=== PATIENT | female | born 1985 | race Caucasian/White ===

== ENCOUNTER 2022-05-20 22:07 | Emergency (ER) | payer OTHER ==
--- NOTE | 2022-05-20 22:59 | ERPHSYRPT ---
- History of Present Illness Time Seen by Provider: 05/20/22 22:50 Historian: patient Physician History: Patient is a 36-year-old female presents to emergency department for evaluation of abdominal pain nausea and vomiting. Symptoms started today. Patient states she has been feeling unwell today. Patient unable to tolerate p.o. [facility] She states she had her gallbladder and her appendix removed. Patient symptoms described as abdominal cramps. Cramping is intense. Mild epigastric pain. Symptoms are constant. Symptoms are moderate in intensity. No specific worsening improving factors. Patient denies history of the same. She voices no other complaints or concerns at this time. Portions of this note were created with voice recognition technology. There may be grammatical, spelling, punctuation or sound alike errors Timing/Duration: today Activities at Onset: none Quality: aching Abdominal Pain Onset Location: epigastric Pain Radiation: no radiation Severity of Pain-Max: moderate Severity of Pain-Current: mild Modifying Factors: Improves With: nothing Associated Symptoms: denies symptoms Previous symptoms: no prior history Allergies/Adverse Reactions: bee venom protein (honey bee) Allergy (Severe, Verified 05/20/22 23:11) enoxaparin [From Lovenox] Allergy (Intermediate, Verified 05/20/22 23:11) heparin Allergy (Intermediate, Verified 05/20/22 23:11) onion Allergy (Intermediate, Verified 05/20/22 23:11) - Review of Systems Constitutional: No Symptoms, No Fever, No Chills Eyes: No Symptoms Ears, Nose, & Throat: No Symptoms Respiratory: No Symptoms, No Cough, No Dyspnea Cardiac: No Symptoms, No Chest Pain, No Edema, No Syncope Abdominal/Gastrointestinal: No Symptoms, No Abdominal Pain, No Nausea, No Vomiting, No Diarrhea Genitourinary Symptoms: No Symptoms, No Dysuria Musculoskeletal: No Symptoms, No Back Pain, No Neck Pain Skin: No Symptoms, No Rash Neurological: No Symptoms, No Dizziness, No Focal Weakness, No Sensory Changes Psychological: No Symptoms Endocrine: No Symptoms Hematologic/Lymphatic: No Symptoms Immunological/Allergic: No Symptoms All Other Systems: Reviewed and Negative - Female History Hx Now: No - Nursing Vital Signs Nursing Vital Signs: Initial Vital Signs Temperature 97.2 F 05/20/22 22:48 Pulse Rate 95 H 05/20/22 22:48 Respiratory Rate 18 05/20/22 22:48 Blood Pressure 143/94 05/20/22 22:48 O2 Sat by Pulse Oximetry 99 05/20/22 22:48 Pain Scale Pain Intensity 7 - Physical Exam General Appearance: no apparent distress, alert Eye Exam: PERRL/EOMI, eyes nml inspection Ears, Nose, Throat Exam: normal ENT inspection, TMs normal, pharynx normal, ruben st mucous membranes Neck Exam: normal inspection, non-tender, supple, full range of motion Respiratory Exam: normal breath sounds, lungs clear, airway intact, No chest tenderness, No respiratory distress Cardiovascular Exam: regular rate/rhythm, normal heart sounds, normal peripheral pulses Gastrointestinal/Abdomen Exam: soft, normal bowel sounds, other (Epigastric pain. Epigastric tenderness to palpation. Overlying soft tissue intact. Patient has a history of cholecystectomy as well as appendectomy), No tenderness, No mass Back Exam: normal inspection, normal range of motion, No CVA tenderness, No vertebral tenderness Extremity Exam: normal inspection, normal range of motion, pelvis stable Neurologic Exam: alert, oriented x 3, cooperative, normal mood/affect, nml cerebellar function, sensation nml, No motor deficits Skin Exam: normal color, warm, dry SpO2 Interpretation: normal SpO2: 98 O2 Delivery: Room Air - Course Nursing assessment & vital signs reviewed: Yes - CT Exams Abdomen/Pelvis CT Interpretation: Tele-radiologist Report (Calcified granuloma within the left lower lobe nonobstructive nephrolithiasis colonic diverticulosis moderate amount of stool throughout the colon suggesting constipation.) Ordered Tests: Active Orders 24 hr Category Date Time Status IV Insertion STAT Care 05/20/22 22:55 Active ABDOMEN AND PELVIS W/0 CONTRAS [CT] Stat Exams 05/20/22 22:56 Taken CBC W DIFF Stat Lab 05/20/22 23:00 Completed CMP Stat Lab 05/20/22 23:00 Completed HCG,QUALITATIVE URINE Stat Lab 05/20/22 22:56 Ordered LIPASE Stat Lab 05/20/22 23:00 Completed TROPONIN Q4H Lab 05/20/22 23:00 Completed TROPONIN Q4H Lab 05/21/22 03:00 Ordered TROPONIN Q4H Lab 05/21/22 07:00 Ordered Transfer Order Routine Transfer 05/21/22 Ordered Medication Summary Discontinued Medications Generic Name Dose Route Start Last Admin Trade Name Freq PRN Reason Stop Dose Admin Diphenhydramine HCl 25 mg 11/01/22 23:41 05/20/22 23:43 Diphenhydramine Hcl 50 Mg/Ml Vial IV 05/20/22 23:42 25 mg STAT ONE Administration Diphenhydramine HCl Confirm 05/20/22 23:42 Diphenhydramine Hcl 50 Mg/Ml Vial Administered 05/20/22 23:43 Dose 50 mg .ROUTE .STK-MED ONE Sodium Chloride 1,000 mls @ 999 mls/hr 05/20/22 22:55 05/20/22 23:07 Sodium Chloride 0.9% 1000 Ml IV 05/20/22 23:55 999 mls/hr .Q1H1M STA Administration Sodium Chloride Confirm 05/20/22 23:05 Sodium Chloride 0.9% 1000 Ml Administered 05/20/22 23:06 Dose 1,000 mls @ ud .ROUTE .STK-MED ONE Morphine Sulfate 4 mg 05/20/22 22:55 05/20/22 23:08 Morphine Sulfate 4 Mg/Ml Injection IV 05/20/22 22:56 4 mg STAT ONE Administration Morphine Sulfate Confirm 05/20/22 23:05 Morphine Sulfate 4 Mg/Ml Injection Administered 05/20/22 23:06 Dose 4 mg .ROUTE .STK-MED ONE Ondansetron HCl 4 mg 05/20/22 22:55 05/20/22 23:08 Ondansetron Hcl 4 Mg/2 Ml Vial IV 05/20/22 22:56 4 mg STAT ONE Administration Ondansetron HCl Confirm 05/20/22 23:05 Ondansetron Hcl 4 Mg/2 Ml Vial Administered 05/20/22 23:06 Dose 4 mg .ROUTE .STK-MED ONE Ondansetron HCl 4 mg 05/21/22 01:29 Ondansetron Hcl 4 Mg/2 Ml Vial IV 05/21/22 01:30 STAT ONE Lab/Rad Data: Laboratory Result Diagrams 05/20/22 23:00 05/20/22 23:00 Laboratory Results 05/20/22 05/20/22 05/20/22 Range/Units 23:00 23:00 23:00 WBC 5.5 (4.0-10.5) x10^3/uL RBC 4.38 (4.1-5.4) x10^6/uL Hgb 13.4 (12.0-16.0) g/dL Hct 39.6 (35-47) % MCV 90.4 (78-100) fL MCH 30.6 (26-32) pg MCHC 33.8 (32-36) g/dL RDW 12.0 (11.5-14.0) % Plt Count 253 (150-450) x10^3/uL MPV 9.7 (7.5-11.0) fL Gran % 54.8 (36.0-66.0) % Immature Gran % (Auto) 0.4 (0.00-0.4) % Nucleat RBC Rel Count 0.0 (0.00-0.1) % Eos # (Auto) 0.22 (0-0.5) x10^3/uL Immature Gran # (Auto) 0.02 (0.00-0.03) x10^3u/L Absolute Lymphs (auto) 1.79 (1.0-4.6) x10^3/uL Absolute Monos (auto) 0.43 (0.0-1.3) x10^3/uL Absolute Nucleated RBC 0.00 (0.00-0.01) x10^3u/L Lymphocytes % 32.3 (24.0-44.0) % Monocytes % 7.8 (0.0-12.0) % Eosinophils % 4.0 (0.00-5.0) % Basophils % 0.7 (0.0-0.4) % Absolute Granulocytes 3.04 (1.4-6.9) x10^3/uL Basophils # 0.04 (0-0.4) x10^3/uL Sodium 139 (137-145) mmol/L Potassium 3.6 (3.5-5.1) mmol/L Chloride 104 (98-107) mmol/L Carbon Dioxide 25 (22-30) mmol/L Anion Gap 13.6 (5-15) MEQ/L BUN 13 (7-17) mg/dL Creatinine 0.75 (0.52-1.04) mg/dL Estimated GFR > 60.0 ML/MIN Glucose 105 (74-106) mg/dL Calcium 8.9 (8.4-10.2) mg/dL Total Bilirubin 2.40 H (0.2-1.3) mg/dL AST 518 H (14-36) U/L ALT 265 H (0-35) U/L Alkaline Phosphatase 137 H (38-126) U/L Troponin I < 0.012 (0.000-0.034) ng/mL Serum Total Protein 7.9 (6.3-8.2) g/dL Albumin 4.6 (3.5-5.0) g/dL Lipase 56 (23-300) U/L - Progress Progress: improved Progress Note: Case discussed with Dr. Cheema. Patient does not have a doctor locally. She is from [place]. Patient will see Dr. Cheema in the morning. We will schedule patient for an outpatient ultrasound of the right upper quadrant. Patient has a history of cholecystectomy. We will assess for possible CBD stone. Patient requesting discharge. We will arrange for patient's follow-up prior to discharge. She voices no other complaints or concerns at this time. Portions of this note were created with voice recognition technology. There may be grammatical, spelling, punctuation or sound alike errors 05/21/22 01:32 Patient currently scheduled for an outpatient right upper quadrant ultrasound to be performed this morning at 10 AM. Patient discharged home. She received a prescription for Zofran. 05/21/22 01:49 Counseled pt/family regarding: lab results, diagnosis, need for follow-up, rad results - Departure Departure Disposition: Home Clinical Impression: Abdominal pain, Total bilirubin, elevated, Elevated alkaline phosphatase level, Transaminitis, Lung granuloma, Diverticulosis, Constipation Condition: Stable Critical Care Time: No Referrals: KEMAL NORRIS MD [Primary Care Provider] - Follow up/PCP as directed Additional Instructions: Discharge/Care Plan JENNIFER PRATHER was seen on 05/21/22 in the Emergency Room. The patient was counseled regarding Diagnosis,Lab results, Imaging studies, need for follow up and when to return to the Emergency Room. Prescriptions given: Discharge Note I have spoken with the patient and/or caregivers. I have explained the patient's condition, diagnosis and treatment plan based on the information available to me at this time. I have answered the patient's and/or caregiver's questions and addressed any concerns. The patient and/or caregivers have as good understanding of the patient's diagnosis, condition and treatment plan as can be expected at this point. The vital signs have been stable. The patient's condition is stable and appropriate for discharge from the emergency department. The patient will pursue further outpatient evaluation with the primary care physician or other designated or consulting physician as outlined in the discharge instructions. The patient and/or caregivers are agreeable to this plan of care and follow-up instructions have been explained in detail. The patient and/or caregivers have received these instruction. The patient/and or caregivers are aware that any significant change in condition or worsening of symptoms should prompt an immediate return to this or the closest emergency department or call 911. Prescriptions: Ondansetron ODT 4 MG [Zofran Odt 4 mg] 4 mg PO Q6H PRN PRN #10 tablet PRN Reason: Vomiting
[2022-05-20 23:00] VITALS: O2SAT 98
[2022-05-20] MEDS ORDERED: Sodium Chloride 0.9% 1000 ML 1,000 ML ONE (23:05)
[2022-05-20] MEDS ORDERED: Zofran 4 MG/2 ML VIAL ONE (23:05)
[2022-05-20] MEDS ORDERED: MORPHINE SULFATE 4 MG INJ ONE (23:05)
[2022-05-20] MEDS: Sodium Chloride 0.9% 1000 ML 1,000 ML IV STA (23:07)
[2022-05-20] MEDS: MORPHINE SULFATE 4 MG INJ IV ONE (23:08)
[2022-05-20] MEDS: Zofran 4 MG/2 ML VIAL IV ONE (23:08)
[2022-05-20 23:10] LABS: Absolute Neutrophil Ct (ANC) 3.04 x10^3/uL (1.4-6.9); Basophil (Absolute #) 0.04 x10^3/uL (0-0.4); Eosinophil (Absolute #) 0.22 x10^3/uL (0-0.5); Hematocrit 39.6 % (35-47); Hemoglobin 13.4 g/dL (12.0-16.0); Lymphocyte (Absolute #) 1.79 x10^3/uL (1.0-4.6); Lymphocytes % 32.3 % (24.0-44.0); Mean Cell Volume 90.4 fL (78-100); Mean Corpuscular Hemoglobin 30.6 pg (26-32); Mean Corpuscular Hgb Concent. 33.8 g/dL (32-36); Mean Platelet Volume 9.7 fL (7.5-11.0); Monocyte (Absolute #) 0.43 x10^3/uL (0.0-1.3); Monocytes % 7.8 % (0.0-12.0); Neutrophil % 54.8 % (36.0-66.0); Platelet Count 253 x10^3/uL (150-450); Red Blood Count 4.38 x10^6/uL (4.1-5.4); White Blood Count 5.5 x10^3/uL (4.0-10.5)
[2022-05-20 23:24] LABS: ALBUMIN 4.6 g/dL (3.5-5.0); ALKALINE PHOSPHATASE 137 U/L (38-126); ANION GAP 13.6 MEQ/L (5-15); BLOOD UREA NITROGEN 13 mg/dL (7-17); CHLORIDE 104 mmol/L (98-107); Calcium 8.9 mg/dL (8.4-10.2); Carbon Dioxide 25 mmol/L (22-30); Creatinine 1 0.75 mg/dL (0.52-1.04); EST GLOMERULAR FILTRATION RATE > 60.0 ML/MIN; Glucose 105 mg/dL (74-106); LIPASE 56 U/L (23-300); Potassium 3.6 mmol/L (3.5-5.1); SGOT/AST 518 U/L (14-36); SGPT/ALT 265 U/L (0-35); SODIUM 139 mmol/L (137-145); Total Protein 7.9 g/dL (6.3-8.2)
[2022-05-20] MEDS ORDERED: BENADRYL 50 MG/ML ONE (23:42)
[2022-05-20] MEDS: BENADRYL 50 MG/ML IV ONE (23:43)
[2022-05-21] MEDS ORDERED: Zofran 4 MG/2 ML VIAL ONE (01:55)
[2022-05-21] MEDS: Zofran 4 MG/2 ML VIAL IV ONE (02:00)
[2022-05-21 02:07] VITALS: BP 118/72; PULSE 74
--- NOTE | 2022-05-21 09:11 | XRAY ---
Indication: Abdomen pain and cramping. Nausea and vomiting. Dehydration. Multiple contiguous axial images obtained through the abdomen and pelvis without contrast. Comparison: None Lungs bases demonstrates small left base calcific granuloma. Heart not enlarged. Noncontrasted stomach and bowel loops appear nonobstructed. Mild diffuse scattered colonic fecal debris throughout. Appendectomy and cholecystectomy reported. No free fluid/air. Right kidney demonstrates nonobstructing punctate calculus. Spleen is enlarged measuring 14.5 cm. Remaining liver, pancreas, spleen, adrenal glands, kidneys, ureters, bladder, uterus, and aorta are unremarkable for noncontrast exam. Osseous structures intact with incidental L5 laminectomy. Impression: 1. Mild fecal stasis, nonobstructing right renal punctate calculus, and splenomegaly. 2. Remaining CT abdomen/pelvis without contrast exam is negative. Comment: Preliminary interpretation made by [facility]. No critical discrepancy.
== END 2022-05-21 02:31 | disposition home or self-care (01) ==
LOC: ED 22:07
DX: R10.9 Unspecified abdominal pain (principal); R74.8 Abnormal levels of other serum enzymes; E80.6 Other disorders of bilirubin metabolism; R74.01 Elevation of levels of liver transaminase levels; J84.10 Pulmonary fibrosis, unspecified; K57.90 Diverticulosis of intestine, part unspecified, without perforation or abscess without bleeding; K59.00 Constipation, unspecified; R11.2 Nausea with vomiting, unspecified
CPT/HCPCS: 36000; 36415; 74176; 80053; 83690; 84484; 85025; 96360; 96374; 96375; 96376; 99284; J1200; J2270; J2405

== ENCOUNTER 2022-12-01 10:11 | Emergency (ER) | payer SELFPAY ==
--- NOTE | 2022-12-01 10:19 | ERPHSYRPT ---
- History of Present Illness Time Seen by Provider: 12/01/22 10:19 Source: patient Exam Limitations: no limitations Physician History: This is a 37-year-old white female patient who has history of chronic back pain and thyroid cancer and presents with intermittent sore throat and cough for 3 weeks. It is worsened in the last 2 to 3 days. Patient does deliver items to individuals and she wants to make sure she is not infectious and also wants treatment for her symptoms. She denies chest pain. She has some sensation of shortness of breath with coughing. She has no vomiting or diarrhea. She has not had a fever. She has no abdominal pain. Timing/Duration: week(s) (3) Cough Quality/Degree: mild, blood streaked sputum (Mild amount) Possible Cause: no prior episodes Modifying Factors: Improves With: coughing Associated Symptoms: cough, sore throat, No chest pain/soreness, No dizziness, No headache, No muscle aches, No shortness of breath Allergies/Adverse Reactions: bee venom protein (honey bee) Allergy (Severe, Verified 05/20/22 23:11) enoxaparin [From Lovenox] Allergy (Intermediate, Verified 05/20/22 23:11) heparin Allergy (Intermediate, Verified 05/20/22 23:11) onion Allergy (Intermediate, Verified 05/20/22 23:11) vancomycin Allergy (Verified 12/01/22 10:23) Hx Tetanus, Diphtheria Vaccination/Date Given: Yes Hx Influenza Vaccination/Date Given: No Hx Pneumococcal Vaccination/Date Given: No Travel Risk - International Travel Have you traveled outside of the country in past 3 weeks: No - Coronavirus Screening Are you exhibiting any of the following symptoms?: Yes Symptoms: Cough: New Onset Close contact with a COVID-19 positive Pt in past 14-21 Days: No - Vaccine Status Have you recieved a Covid-19 vaccination: Yes Parking Patroller: Moderna - Vaccination Dates Date of 2cond Vaccination (if applicable): [place] - Review of Systems Constitutional: No Symptoms Eyes: No Symptoms Ears, Nose, & Throat: Throat Pain Respiratory: Cough Cardiac: No Symptoms Abdominal/Gastrointestinal: No Symptoms Genitourinary Symptoms: No Symptoms Musculoskeletal: No Symptoms Skin: No Symptoms Neurological: No Symptoms Psychological: No Symptoms Endocrine: No Symptoms Hematologic/Lymphatic: No Symptoms Immunological/Allergic: No Symptoms All Other Systems: Reviewed and Negative - Past Medical History Pertinent Past Medical History: Yes Endocrine Medical History: Thyroid Cancer Other Medical History: chronic back pain - Past Surgical History Past Surgical History: Yes Gastrointestinal: Appendectomy, Cholecystectomy Musculoskeletal: Orthopedic Surgery Female Surgical History: Dilation & Curettage, Section, Tubal Ligation Other Surgical History: mult back surgeries, uterine ablation, leep procedure, rt thyroidectomy with lymph tissue - Social History Smoking Status: Current every day smoker How long have you smoked: 6 yrs Drug Use: marijuana Patient Lives Alone: No - Nursing Vital Signs Nursing Vital Signs: Initial Vital Signs Temperature 98.2 F 12/01/22 10:12 Pulse Rate 93 H 12/01/22 10:12 Respiratory Rate 18 12/01/22 10:12 Blood Pressure 122/87 12/01/22 10:12 O2 Sat by Pulse Oximetry 100 12/01/22 10:12 Pain Scale Pain Intensity 5 - Physical Exam General Appearance: no apparent distress, alert, anxiety Eye Exam: PERRL/EOMI, eyes nml inspection Ears, Nose, Throat Exam: moist mucous membranes, pharyngeal erythema Neck Exam: normal inspection, non-tender, supple, full range of motion Respiratory Exam: normal breath sounds, lungs clear, airway intact, No chest tenderness, No respiratory distress Cardiovascular Exam: regular rate/rhythm, normal heart sounds, normal peripheral pulses Gastrointestinal/Abdomen Exam: No tenderness Pelvic Exam: not done Rectal Exam: not done Back Exam: normal inspection, normal range of motion, No CVA tenderness, No vertebral tenderness Extremity Exam: normal inspection, normal range of motion, pelvis stable Neurologic Exam: alert, oriented x 3, cooperative, ward attendant II-XII nml as tested, normal mood/affect, nml cerebellar function, nml station & gait, sensation nml Skin Exam: normal color, warm, dry Lymphatic Exam: No adenopathy SpO2 Interpretation: normal O2 Delivery: Room Air - Course Nursing assessment & vital signs reviewed: Yes Lab/Rad Data: Laboratory Results 12/01/22 12/01/22 Range/Units 11:10 11:10 Influenza Type A Ag NEGATIVE (NEGATIVE) Influenza Type B Ag NEGATIVE (NEGATIVE) RSV (PCR) NEGATIVE (NEGATIVE) SARS-CoV-2 (PCR) NEGATIVE (NEGATIVE) Group A Strep Antibody NEGATIVE (NEGATIVE) - Progress Progress: improved Air Movement: good Progress Note: 12/01/22 10:57 Patient's medical issue is 1 of low complexity. The level of complexity and the work-up performed is based on the patient's review of her past medical history, medication list, allergy list, history present illness and findings on physical examination. This patient appears to have an upper respiratory infection with pharyngitis. Her symptoms have been intermittent for few weeks. She will need to be covered for a bacterial cause of her symptoms. We will provide her a prescription and send this remotely to her pharmacy which will include amoxicillin, prednisone and hydrocodone elixir. Patient does deliver items to individuals in which she does want to be sure she does or does not have COVID or strep or other type of communicable illness. Counseled pt/family regarding: lab results, diagnosis, need for follow-up Medical Desision Making - Discussion of managment Agreed on:: Treatment plan, need for follow-up - Diagnostic Testing Diagnostic test were ordered, analyzed, and reviewed by me: Yes - Risk of complications The pt has a mod risk of morbidity or mortality based on: Need for prescription drug management - Departure Departure Disposition: Home Clinical Impression: Pharyngitis, URI (upper respiratory infection) Condition: Stable Critical Care Time: No Referrals: KEMAL NORRIS MD [NON-STAFF PHY W/O PRIVILEGES] - Follow up/PCP as directed Additional Instructions: Drink plenty of clear liquids. Avoid exposure to any type of smoke. Take your medication as prescribed. Follow-up with your primary care physician for further evaluation management. Prescriptions: Hydrocodone/Acetaminophen [Hydrocodone-Acetamn 7.5-325/15] 10 ml PO Q8H PRN PRN #120 ml MDD 30 ml PRN Reason: Cough Amoxicillin 500 mg Cap [Amoxil 500 mg] 500 mg PO TID #30 cap Prednisone 10 mg [Deltasone 10 mg] 10 mg PO TID #12 tablet
[2022-12-01 10:37] VITALS: BP 122/87
[2022-12-01 11:16] VITALS: PULSE 92; O2SAT 95
[2022-12-01 12:29] LABS: INFLUENZA A NEGATIVE (NEGATIVE); INFLUENZA B NEGATIVE (NEGATIVE); RESPIRATORY SYNCTIAL VIRUS NEGATIVE (NEGATIVE); SARS-CoV-2 Xpert Express NEGATIVE (NEGATIVE)
== END 2022-12-01 12:49 | disposition home or self-care (01) ==
LOC: ED 10:11
DX: J02.9 Acute pharyngitis, unspecified (principal); J06.9 Acute upper respiratory infection, unspecified; R05.9 Cough, unspecified; Z79.891 Long term (current) use of opiate analgesic; Z79.52 Long term (current) use of systemic steroids; Z72.0 Tobacco use
CPT/HCPCS: 0241U; 87651; 99282

== ENCOUNTER 2023-08-25 16:31 | Emergency (ER) | payer MEDICAID ==
[2023-08-25 16:48] VITALS: PULSE 105; RESP 18; TEMP 98.6; O2SAT 100
--- NOTE | 2023-08-25 17:06 | ERPHSYRPT ---
- History of Present Illness Time Seen by Provider: 08/25/23 16:45 Source: patient Exam Limitations: no limitations Patient Subjective Stated Complaint: Laceration-left hand 4th digit Triage Nursing Assessment: Patient ambulated back to ED and transferred self to bed. Patient A+O X3. Patient's skin pink, warm and dry. Patient states she put her hand in her pocket forgetting she had put it in her pocket. Patient states she took her hand out and noted bleeding. Patient has 0.5 cm skin flap noted to left hand 4th digit. Patient complains of pain 6/10. Physician History: 38-year-old female presents to our ED with a 0.5 cm laceration at the hyponychium. Patient had a razor blade in her pocket. Patient forgot there was a razor blade reached into her pocket and lacerated her finger. Injury occurred just prior to arrival. No other injuries reported pain described as a sharp pain localized no radiation. Pain worse with movement palpation. Pain improved with rest. No other injuries reported. Patient otherwise healthy. Tetanus up-to-date. Significant other at bedside. They voiced no other complaints or concerns at this time. Portions of this note were created with voice recognition technology. There may be grammatical, spelling, punctuation or sound alike errors Timing/Duration: today Severity: moderate Modifying Factors: Improves With: movement Associated Symptoms: denies symptoms Allergies/Adverse Reactions: bee venom protein (honey bee) Allergy (Severe, Verified 08/25/23 16:37) enoxaparin [From Lovenox] Allergy (Intermediate, Verified 08/25/23 16:37) heparin Allergy (Intermediate, Verified 08/25/23 16:37) onion Allergy (Intermediate, Verified 08/25/23 16:37) vancomycin Allergy (Verified 08/25/23 16:37) Home Medications: No Reportable Medications [No Reported Medications] 08/25/23 [History] Hx Tetanus, Diphtheria Vaccination/Date Given: Yes Hx Influenza Vaccination/Date Given: No Hx Pneumococcal Vaccination/Date Given: No Travel Risk - International Travel Have you traveled outside of the country in past 3 weeks: No - Coronavirus Screening Are you exhibiting any of the following symptoms?: No Close contact with a COVID-19 positive Pt in past 14-21 Days: No - Vaccine Status Have you recieved a Covid-19 vaccination: Yes [employer]: Moderna - Vaccination Dates Date of 2cond Vaccination (if applicable): [place] - Review of Systems Constitutional: No Symptoms, No Fever, No Chills Eyes: No Symptoms Ears, Nose, & Throat: No Symptoms Respiratory: No Symptoms, No Cough, No Dyspnea Cardiac: No Symptoms, No Chest Pain, No Edema, No Syncope Abdominal/Gastrointestinal: No Symptoms, No Abdominal Pain, No Nausea, No Vomiting, No Diarrhea Genitourinary Symptoms: No Symptoms, No Dysuria Musculoskeletal: No Symptoms, No Back Pain, No Neck Pain Skin: No Symptoms, No Rash Neurological: No Symptoms, No Dizziness, No Focal Weakness, No Sensory Changes Psychological: No Symptoms Endocrine: No Symptoms Hematologic/Lymphatic: No Symptoms Immunological/Allergic: No Symptoms All Other Systems: Reviewed and Negative - Past Medical History Pertinent Past Medical History: Yes Neurological History: No Pertinent History ENT History: No Pertinent History Cardiac History: No Pertinent History Respiratory History: No Pertinent History Endocrine Medical History: Thyroid Cancer Musculoskeletal History: No Pertinent History GI Medical History: No Pertinent History History: No Pertinent History Psycho-Social History: Depression Female Reproductive Disorders: No Pertinent History Other Medical History: chronic back pain - Past Surgical History Past Surgical History: Yes Neuro Surgical History: No Pertinent History Cardiac: No Pertinent History Respiratory: No Pertinent History Gastrointestinal: Appendectomy, Cholecystectomy Genitourinary: No Pertinent History Musculoskeletal: Orthopedic Surgery Female Surgical History: Dilation & Curettage, Section, Tubal Ligation Other Surgical History: mult back surgeries, uterine ablation, leep procedure, rt thyroidectomy with lymph tissue - Social History Smoking Status: Current every day smoker How long have you smoked: 6 yrs Exposure to second hand smoke: No Drug Use: none Patient Lives Alone: No - Female History Hx Last Menstrual Period: 2 months ago Hx Now: No - Nursing Vital Signs Nursing Vital Signs: Initial Vital Signs Temperature 98.6 F 08/25/23 16:38 Pulse Rate 105 H 08/25/23 16:38 Respiratory Rate 18 08/25/23 16:38 Blood Pressure 140/108 08/25/23 16:38 O2 Sat by Pulse Oximetry 100 08/25/23 16:38 Pain Scale Pain Intensity 6 - Physical Exam General Appearance: no apparent distress, alert Eye Exam: PERRL/EOMI, eyes nml inspection Neck Exam: normal inspection, full range of motion Respiratory Exam: normal breath sounds, airway intact, No respiratory distress Cardiovascular Exam: regular rate/rhythm, normal heart sounds, normal peripheral pulses Gastrointestinal/Abdomen Exam: No tenderness, No mass Back Exam: normal inspection, normal range of motion, No CVA tenderness, No vertebral tenderness Extremity Exam: normal inspection, normal range of motion, pelvis stable, other (There is a 0.5 cm laceration at the hyponychium of the left ring finger. The involved digits neurovascular tact distally. Compartments are soft cap refill less than 2 seconds.) Neurologic Exam: alert, oriented x 3, cooperative, normal mood/affect, sensation nml, No motor deficits Skin Exam: normal color, warm, dry, No rash Lymphatic Exam: No adenopathy SpO2 Interpretation: normal SpO2: 100 O2 Delivery: Room Air - Course Nursing assessment & vital signs reviewed: Yes Ordered Tests: Medication Summary Discontinued Medications Generic Name Dose Route Start Last Admin Trade Name Freq PRN Reason Stop Dose Admin Acetaminophen 975 mg 08/25/23 17:05 08/25/23 17:14 Acetaminophen 325 Mg Tablet PO 08/25/23 17:06 975 mg STAT ONE Administration Acetaminophen Confirm 08/25/23 17:12 Acetaminophen 325 Mg Tablet Administered 08/25/23 17:13 Dose 975 mg .ROUTE .STK-MED ONE Lidocaine HCl Confirm 08/25/23 17:55 Lidocaine Hcl 1% 20 Ml Mdv 20 Ml Ml Administered 08/25/23 17:56 Dose 10 ml .ROUTE .STK-MED ONE - Progress Progress: improved Progress Note: 38-year-old female presents to our ED with a laceration to the hyponychium of her left ring finger. There is a flap at that location. Patient clipped her fingernail preparation for the suture repair. After it was clipped patient decided she did not want suture repair. Patient requesting glue and a dressing only. This was applied by the RN. The flap of skin is dusky however it appears superficial. The wound is clean. No indication for further workup. Patient agrees to follow-up with her primary care doctor within 48 hours for evaluation. Portions of this note were created with voice recognition technology. There may be grammatical, spelling, punctuation or sound alike errors Complexity of problem addressed is low acute uncomplicated Complex of data reviewed and analyzed is none. Diagnosis made based on history and physical examination. No specialized testing ordered. Risk of complication and or risk of morbidity/mortality of patient management is low Vital stable. Time spent to discharge patient approximately 10 minutes. Patient declined suture repair. Patient agrees to follow-up with her primary care doctor within 48 hours for evaluation. No social determinants of health present impede follow-up. Portions of this note were created with voice recognition technology. There may be grammatical, spelling, punctuation or sound alike errors 08/25/23 18:07 Counseled pt/family regarding: diagnosis, need for follow-up - Departure Departure Disposition: Home Clinical Impression: Laceration Condition: Stable Critical Care Time: No Referrals: DOCTOR,NO FAMILY [Primary Care Provider] - Follow up/PCP as directed ARIELLE FLORES DO [ACTIVE STAFF] - Follow up/PCP as directed Additional Instructions: Discharge/Care Plan JENNIFER PRATHER was seen on 08/25/23 in the Emergency Room. The patient was counseled regarding Diagnosis,Lab results, Imaging studies, need for follow up and when to return to the Emergency Room. Prescriptions given: Discharge Note I have spoken with the patient and/or caregivers. I have explained the patient's condition, diagnosis and treatment plan based on the information available to me at this time. I have answered the patient's and/or caregiver's questions and addressed any concerns. The patient and/or caregivers have as good understanding of the patient's diagnosis, condition and treatment plan as can be expected at this point. The vital signs have been stable. The patient's condition is stable and appropriate for discharge from the emergency department. The patient will pursue further outpatient evaluation with the primary care p hyraminan or other designated or consulting physician as outlined in the discharge instructions. The patient and/or caregivers are agreeable to this plan of care and follow-up instructions have been explained in detail. The patient and/or caregivers have received these instruction. The patient/and or caregivers are aware that any significant change in condition or worsening of symptoms should prompt an immediate return to this or the closest emergency department or call 911.
[2023-08-25] MEDS ORDERED: TYLENOL 325 MG ONE (17:12)
[2023-08-25] MEDS: TYLENOL 325 MG PO ONE (17:14)
[2023-08-25] MEDS ORDERED: XYLOCAINE 1% HCL 20 ML MDV ONE (17:55)
[2023-08-25 18:26] VITALS: BP 128/98
== END 2023-08-25 18:10 | disposition home or self-care (01) ==
LOC: ED 16:31
DX: S61.215A Laceration without foreign body of left ring finger without damage to nail, initial encounter (principal); W26.8XXA Contact with other sharp object(s), not elsewhere classified, initial encounter; Z72.0 Tobacco use
CPT/HCPCS: 99281; A9270-GY